=== PATIENT | female | born 1990 | race African-American/Black ===

== ENCOUNTER 2016-11-06 11:57 | Observation (INO) | payer MEDICAID, OTHER ==
[2016-11-06 12:26] LABS: #Basophils 0.1 thou/uL (0.0-0.2); #Lymphocytes 3.5 thou/uL (1.20-3.40); #Monocytes 0.6 thou/uL (0.11-0.59); #Neutrophils 5.9 thou/uL (1.40-6.50); %Basophils 1.2 % (0.0-1.0); %Eosinophils 0.5 % (0.0-10.0); %Lymphocytes 34.5 % (21.0-51.0); %Monocytes 5.5 % (0.0-10.0); Hematocrit 22.2 % (36.0-47.0); Mean Platelet Volume 6.6 fL (7.4-10.4); Red Blood Cell (RBC) Count 2.71 mill/uL (4.20-5.40)
[2016-11-06] MEDS ORDERED: Ondansetron ODT 4 MG TAB PO PRN (13:05)
[2016-11-06] MEDS ORDERED: Acetaminophen 500 MG TAB ONE (13:57)
[2016-11-06 14:29] VITALS: BMI 39.9
[2016-11-06] MEDS: Ketorolac Tromethamine 30 MG/ML VIAL IVP PRN (17:40)
[2016-11-06] MEDS: Lactated Ringer's 1,000 ML IV SCH (17:40)
--- NOTE | 2016-11-06 19:04 | HP ---
DATE OF SERVICE: 11/06/2016 CHIEF COMPLAINT: Vaginal bleeding. HISTORY OF PRESENT ILLNESS: This is a 26-year-old para 1 who presented to the Emergency Department for prolonged heavy vaginal bleeding with dizziness and headache. She reports that she has had regu lar monthly cycles up until September when she started bleeding daily. She has seen Dr. Morataya at [facility] and [facility], who has done a workup and placed her on oral contraceptive pills for approximately 3 w eeks. She reports no change in her bleeding since then. Her dizziness and headaches started today and became worse, so she came to the emergency department. She has had cramping with this bleeding for the last several weeks. She also has had some nausea today. REVIEW OF SYSTEMS: She denies any problems with head, eyes, ears, nose, throat, cardiovascular, res piratory, GI, , neuro, psych, musculoskeletal, skin or constitutional symptoms other than mentione d above. PAST MEDICAL HISTORY: Ovarian cyst. PAST SURGICAL HISTORY: 1. x1. 2. Laparoscopic ovarian cystectomy in 2010. MEDICATIONS: Mononessa oral contraceptive pills. ALLERGIES: No known drug allergies. SOCIAL HISTORY: Negative for tobacco, alcohol, or drug abuse. She is and has a 3-year-old son. FAMILY HISTORY: Positive for hypertension in her mom and dad. There are no first degree relatives with breast, ovary, uterine, or colon cancer, although she does have colon cancer in her extended raisa. PHYSICAL EXAMINATION: VITAL SIGNS: Temperature 98.1, blood pressure 131/78, pulse 113, respiratory rate 18. GENERAL: Awake, alert, in no acute distress. CHEST: Nonlabored breathing. ABDOMEN: Obese, soft, nontender to palpation. PELVIC: Deferred at this time. LABORATORY DATA: Hemoglobin 7.2, hematocrit 22.2, platelets 331,000. test negative. ASSESSMENT AND PLAN: A 26-year-old para 1, with abnormal uterine bleeding that has not been unrespo nsive to oral contraceptive pills. I will place her on Premarin 2.5 mg 4 times daily scheduled to t ry and slow bleeding. She has been consented and is receiving 1 unit of packed red blood cells. We will continue to monitor her symptoms and observe her overnight.
[2016-11-07] MEDS: Lactated Ringer's 1,000 ML IV SCH ×3 (03:41→20:15)
[2016-11-07 05:48] LABS: #Basophils 0.1 thou/uL (0.0-0.2); #Eosinphils 0.1 thou/uL (0.0-0.7); #Lymphocytes 3.3 thou/uL (1.20-3.40); #Monocytes 0.5 thou/uL (0.11-0.59); %Basophils 1.2 % (0.0-1.0); %Eosinophils 1.6 % (0.0-10.0); %Lymphocytes 40.9 % (21.0-51.0); %Monocytes 6.4 % (0.0-10.0); Hematocrit 22.6 % (36.0-47.0); Red Blood Cell (RBC) Count 2.69 mill/uL (4.20-5.40); White Blood Cell (WBC) Count 8.1 thou/uL (4.8-10.8)
--- NOTE | 2016-11-07 08:12 | PRG ---
DATE OF SERVICE: 11/07/2016 SUBJECTIVE: The patient is feeling better this morning, but still feels dizzy. Her headache is improved. She reports her bleeding and her cramping have stopped. PHYSICAL EXAMINATION: VITAL SIGNS: Temperature 98.5, blood pressure 122/77, pulse 91, respiratory rate 18. GENERAL: Awake, alert, in no acute distress. ABDOMEN: Soft, nontender to palpation. LABORATORY DATA: Hemoglobin 7.5 up from 7.2, hematocrit 22.6, up from 22.2. ASSESSMENT AND PLAN: A 26-year-old para 1 with abnormal uterine bleeding that has now stopped and symptomatic anemia. She still has symptoms from her anemia and her hemoglobin only improved slightly, so she agreed to be transfused 1 more unit of packed red blood cells. Following this if she is feeling better she will be able to be discharged home with followup with Dr. Morataya in the next week or so. DAWN
[2016-11-07] MEDS: Ketorolac Tromethamine 30 MG/ML VIAL IVP PRN (09:52)
[2016-11-07] MEDS: medroxyPROGESTERone Acetate 5 MG TAB PO SCH (09:54)
[2016-11-07] MEDS: Acetaminophen 325 MG TAB PO PRN ×2 (09:56→15:15)
[2016-11-07] MEDS: Ondansetron HCl/PF 4 MG/2 ML Vial IVP PRN (20:32)
[2016-11-07] MEDS ORDERED: Zolpidem Tartrate 5 MG TAB PO PRN (21:03)
[2016-11-07] MEDS ORDERED: Acetaminophen 500 MG TAB PO SCH (21:15)
--- NOTE | 2016-11-07 21:33 | PRG ---
DATE OF SERVICE: 11/07/2016 at 2100 HISTORY OF PRESENT ILLNESS: The patient is a 26-year-old female who was admitted for symptomatic an emia and vaginal bleeding after receiving 1 unit of packed red blood cells. She still is having diz ziness and headaches this morning and received a second unit. She also reported at that time that s he was having increased bleeding again and was concerned that her bleeding was returning after tempo rary improvement. Over the course of the day, patient has had scant bleeding. She has had nausea a nd vomiting this evening with estrogen that she has been on and reports that her headache has been i ntermittent through the day. The patient has been ambulating and reports a little bit of dizziness that she thinks it will resolve on its own. PHYSICAL EXAMINATION: VITAL SIGNS: This evening, blood pressure is 125/58, temperature 99.5, pulse of 99, respiratory rat e of 20. GENERAL: She appears to be in no acute distress. She is alert and oriented, and cooperative and pl easant to interact with. HEENT: Normocephalic, atraumatic. She has dinner tray untouched at the side of her bed. ASSESSMENT AND PLAN: The patient is a 26-year-old female admitted for symptomatic anemia and vagina l bleeding refractory to medical management in the acute setting. She has responded well to p.o. es trogen and medroxyprogesterone. Given the significant nausea and vomiting she is having, the level of estrogen she is taking will be cutting her back to 1.25 mg to be taken twice a day and will colton nue her medroxyprogesterone 5 mg daily. Plan at this time is to repeat her CBC in the morning and d ischarge home. 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 Tessy dickerson with [facility] a week from tomorrow.
[2016-11-08 06:11] LABS: Hematocrit 28.2 % (36.0-47.0); Red Blood Cell (RBC) Count 3.34 mill/uL (4.20-5.40); White Blood Cell (WBC) Count 8.4 thou/uL (4.8-10.8)
[2016-11-08] MEDS: Lactated Ringer's 1,000 ML IV SCH (06:25)
[2016-11-08 08:10] VITALS: BP 104/59; TEMP 98.2
[2016-11-08] MEDS: Ondansetron HCl/PF 4 MG/2 ML Vial IVP PRN (08:27)
[2016-11-08] MEDS: medroxyPROGESTERone Acetate 5 MG TAB PO SCH (08:28)
--- NOTE | 2016-11-08 14:31 | DIS ---
DATE OF ADMISSION: 11/06/2016 DATE OF DISCHARGE: 11/08/2016 ADMITTING DIAGNOSES: Abnormal uterine bleeding and symptomatic anemia. DISCHARGE DIAGNOSES: Abnormal uterine bleeding and symptomatic anemia. PROCEDURES: Two units of packed red blood cells transfused. CONSULTATION: None. HOSPITAL COURSE: Patient is a 26-year-old female who had failed outpatient therapy for heavy vagina l bleeding and presented to the emergency room with symptomatic anemia and hemoglobin of 7.2. Aniket julio was admitted to the hospital and transfused 1 unit of packed red blood cells by hospital day #2. Patient continued to have symptoms and vaginal bleeding had returned. She was placed on oral estro gen in orthopedic designer on hospital day #2 and progesterone was added to that. Over the course of hosp ital day #2, patient's vaginal bleeding had greatly improved; however, patient remained to have with headaches and had vomited twice that evening. Her estrogen dosage was readjusted last night and th is morning on hospital day #3, patient reports that she is feeling much better and her bleeding has remained stopped. Hemoglobin after 2 units of packed red blood cells is 9.1 and is no longer having symptoms and feels a lot better today. Patient will be discharged home on Premarin 1.25 mg to be t aken twice a day for 2 days, then once a day for 4 days, and then discontinue. She will also be on medroxyprogesterone 5 mg daily and until she sees her follow up physician and Benji de la cruz for elis ea. DISCHARGE INSTRUCTIONS: Patient will be discharged to home. She is supposed to follow up with Dr. Knott next and prescriptions have been sent electronically to [facility] in [facility] .
== END 2016-11-08 10:40 | disposition home or self-care (01) ==
LOC: ERS 11:57 → 3SW 13:02
PROVIDERS: ADMIT Obstetrics & Gynecology; ATTEND Obstetrics & Gynecology
DX: N93.9 Abnormal uterine and vaginal bleeding, unspecified (principal); D64.9 Anemia, unspecified; Z98.891 History of uterine scar from previous surgery; Z98.890 Other specified postprocedural states; Z79.3 Long term (current) use of hormonal contraceptives; Z79.899 Other long term (current) drug therapy; Z85.43 Personal history of malignant neoplasm of ovary
CPT/HCPCS: 36415; 36430; 84703; 85025; 85027; 86850; 86900; 86901; 96361; 96374; 96375; 96376; A4216; G0378; J1885; J2405; P9016; Q0162

== ENCOUNTER 2017-11-28 00:05 | Emergency (ER) | payer OTHER | END 2017-11-28 01:27 | disposition home or self-care (01) | LOC: ERS 00:05 | DX: R13.10 Dysphagia, unspecified (principal); G43.909 Migraine, unspecified, not intractable, without status migrainosus | CPT/HCPCS: 99284 ==

== ENCOUNTER 2019-09-11 21:51 | Emergency (ER) | payer OTHER ==
[~2019-09-11 21:51] MED LIST: Iopamidol-370 76% 500 ML 1 ML ONE
[2019-09-11 23:09] LABS: #Eosinphils 0.3 thou/uL (0.0-0.7); #Lymphocytes 1.5 thou/uL (1.20-3.40); #Monocytes 0.7 thou/uL (0.11-0.59); #Neutrophils 6.1 thou/uL (1.40-6.50); %Basophils 0.3 % (0.0-1.0); %Eosinophils 3.5 % (0.0-10.0); %Lymphocytes 17.8 % (21.0-51.0); %Monocytes 7.6 % (0.0-10.0); %Neutrophils 70.7 % (42.0-75.0); Hemoglobin 9.5 g/dL (12.0-16.0); Mean Corpuscular HGB CONC 32.3 g/dL (32.0-36.0); Mean Corpuscular Hemoglobin 26.7 pg (27.0-31.0); Mean Corpuscular Volume 82.7 fL (78.0-98.0); Mean Platelet Volume 6.8 fL (7.4-10.4); Platelet Count 281 thou/uL (130-400); RBC Distribution Width 13.8 % (11.5-14.5); Red Blood Cell (RBC) Count 3.54 mill/uL (4.20-5.40); White Blood Cell (WBC) Count 8.6 thou/uL (4.8-10.8)
--- NOTE | 2019-09-11 23:21 | CT ---
CTA CHEST WITH CONTRAST: Date: 09/11/2019 Axial tomograms obtained with multiplanar reconstruction and 3D postprocessing. INDICATION: Chest pain. Recent . Shortness of breath. FINDINGS: Pulmonary arteries show adequate opacification. No evidence of pulmonary embolus identified. The lungs appear clear. There is no evidence of infiltrate or effusion. Mediastinum unremarkable. Images through upper abdomen unremarkable. IMPRESSION: 1. No evidence of pulmonary embolus. 2. No acute lung process. POS: AGW
[2019-09-11 23:22] LABS: ALT (SGPT) 10 U/L (8-55); AST (SGOT) 14 U/L (5-34); Alkaline Phosphatase 93 U/L (40-110); Anion Gap 13 mmol/L (10-20); BUN (Urea Nitrogen) 8 mg/dL (7.0-18.7); Bilirubin, Total 0.2 mg/dL (0.2-1.2); Calc. Creatinine Clearance 0 mL/min (70-130); Carbon Dioxide 21 mmol/L (22-29); Chloride 105 mmol/L (98-107); Estimated GFR-MDRD Greater than 90; Globulin 2.2 g/dL (2.4-3.5); Glucose 97 mg/dL (70-105); Potassium 3.6 mmol/L (3.5-5.1); Protein, Total 5.2 g/dL (6.0-8.3); Sodium 135 mmol/L (136-145)
--- NOTE | 2019-09-11 23:27 | ULT ---
RIGHT LOWER EXTREMITY VENOUS DUPLEX EXAM: Date: 09/11/2019 INDICATION: Right lower extremity pain and edema. Deep veins of right lower extremity evaluated with ultrasound and Doppler including color Doppler wit h spectral analysis and compression. FINDINGS: Deep veins of right lower extremity demonstrate normal blood flow and compression. No evidence of nickie p venous thrombosis. IMPRESSION: No evidence of right lower extremity deep venous thrombosis. POS: AGW
== END 2019-09-12 00:42 | disposition home or self-care (01) ==
LOC: ERS 21:51
DX: R07.89 Other chest pain (principal); D64.9 Anemia, unspecified; G43.909 Migraine, unspecified, not intractable, without status migrainosus
CPT/HCPCS: 36415; 71275; 80053; 84484; 85025; 85379; 93005; Q9967